=== PATIENT | female | born 1975 | race Caucasian/White ===

== ENCOUNTER → 2016-12-02 | Outpatient (CLI) | payer OTHER ==
[~2016-12-02] MED LIST: LIDOCAINE 1% 30 ML SDV ONE; NA BICARBONATE 50 MEQ/50 ML VIAL ONE
--- NOTE | 2016-12-02 16:57 | US ---
Ultrasound of the Right Axilla and Right Inguinal Region INDICATION: The patient presents today scheduled for ultrasound-guided lymph node biopsy at the axil tucker and inguinal areas. The patient has celiac disease, and has growing lymph nodes that have been present for quite some time. Rule out slow-growing lymphoma. TECHNIQUE: Both the pot pusher and myself scanned the patient. FINDINGS Right axilla: The lymph node, largest, measures 18 mm long x 6 mm wide. It is large enough for biop sy. It is very vascular. There is only one trajection that is amenable to this biopsy, and that is distally towards the breast. On the other side of the lymph node proximally towards the head, there are vessels. I would not be able to avoid these vessels very well. The vascularity of these lymph n odes also predisposes the patient to an increased risk of bleeding post biopsy, and bleeding in the a xilla can cause compartment syndrome. In scanning the right inguinal area, there are two small lymph nodes adjacent to each other that are very superficially located, just superficial to the femoral artery and vein complex in the inguinal a christa. The larger of the two measures 1.1 cm long x 4 mm deep. The smaller of the two measures 9 mm lo ng x 3 mm deep. These roll very readily with ultrasounding, and it would be very difficult to pin on e of these down in order to obtain core sample. I do not have much room to wedge any biopsy device t o pin it because of the close proximity of these lesions to the underlying femoral vessels, and very thin body habitus of this patient. Overall, with all of the above considered, I think the patient is better served by surgical excisiona l biopsy, with decreased risk of complication such as bleeding, and much higher chance of obtaining a dequate sample. The above are discussed with the patient, as well as Dr. Violetta Ames. Both expressed understanding and agreement to the surgical approach. IMPRESSIONS 1. Right axillary and inguinal lymph nodes, at locations that are at increased risk of complication, with low yield for adequate sampling. 2. Patient is referred to Dr. Sundar Leigh for surgical excisional biopsy.
== END ==
LOC: FIMAGING 09:44
PROVIDERS: ATTEND Internal Medicine
DX: Z12.31 Encounter for screening mammogram for malignant neoplasm of breast (principal)

== ENCOUNTER → 2017-09-15 | Outpatient (CLI) | payer OTHER | LOC: FIMAGING 11:09 | PROVIDERS: ATTEND Family Medicine | DX: Z12.31 Encounter for screening mammogram for malignant neoplasm of breast (principal) | CPT/HCPCS: G0202 ==

== ENCOUNTER → 2017-09-30 | Outpatient (CLI) | payer OTHER | LOC: FIMAGING 09:39 | PROVIDERS: ATTEND Family Medicine | DX: R92.8 Other abnormal and inconclusive findings on diagnostic imaging of breast (principal) | CPT/HCPCS: G0206 ==

== ENCOUNTER → 2018-05-25 | Outpatient (CLI) | payer OTHER | LOC: FIMAGING 09:21 | PROVIDERS: ATTEND Family Medicine | DX: R92.8 Other abnormal and inconclusive findings on diagnostic imaging of breast (principal) ==

== ENCOUNTER → 2018-09-07 | Outpatient (CLI) | payer OTHER | LOC: FIMAGING 09:28 | PROVIDERS: ATTEND Family Medicine | DX: R92.0 Mammographic microcalcification found on diagnostic imaging of breast (principal) ==